=== PATIENT | female | born 1995 | race Caucasian/White ===

== ENCOUNTER 2017-04-17 06:51 | Day surgery (SDC) | payer MEDICARE ==
[2017-04-16 10:01] LABS: HEMATOCRIT 39.5 % (36.0-48.0); HEMOGLOBIN 12.4 g/dL (12-16); MCH 25.4 pg (26.0-34.0); MCHC 31.4 g/dL (31.0-37.0); MCV 80.8 fL (80.0-100.0); MEAN PLATELET VOLUME 10.8 fL (7.4-10.4); RBC 4.89 10x6/uL (4.00-5.40); RDW 13.6 % (11.5-14.5); WBC 11.6 10x3/uL (4.8-10.8)
[2017-04-17 06:46] LABS: HCG URINE NEGATIVE (NEGATIVE)
[~2017-04-17 06:51] MED LIST: ATIVAN1 MG PO; BENZTROPINE MESY2 MG PO; BIRTH CONTROL TAB PO; EFFEXOR75 MG PO; FLOVENT HFA 11012 GM INH; HYDROCODONE-APA1 TAB PO; HYDROXYZINE HCL50 MG PO; INVEGA6 MG/BLIST PO; KLONOPIN1 MG PO; LITHOBID 300 M300 MG PO; NIZORAL 2 % CRE15 GM TOPICAL; OMEPRAZOLE40 MG PO; PREDNISONE20 MG PO; REXULTI1 MG PO; SYNTHROID75 MCG PO; TOFRANIL50 MG PO; TOPAMAX100 MG PO; TRAZODONE HCL150 MG PO; VENTOLIN HFA18 GM INH; ZANTAC150 MG PO
[2017-04-17 06:53] VITALS: BP 172/99; BMI 62.8
[2017-04-17] MEDS ORDERED: HYDROCODONE-APA1 TAB PO (09:13)
--- NOTE | 2017-04-17 11:59 | NUR ---
1030 IV DC WITH CATHER TIP INTACT
--- NOTE | 2017-04-18 10:57 | OP ---
PATIENT NAME: BOB ANTHONY MEDICAL RECORD: [id number] :96 LOCATION:[facility] ADMISSION DATE: SURGEON: LITTLE JARRELL MD DATE OF OPERATION: 04/17/2017 PREOPERATIVE DIAGNOSIS: Medial meniscus tear of the right knee. POSTOPERATIVE DIAGNOSIS: Medial meniscus tear of the right knee. PROCEDURE: Arthroscopic partial medial meniscectomy. SURGEON: Little Jarrell MD ANESTHESIA: General. INTRAOPERATIVE COMPLICATIONS: None. PATHOLOGIC FINDINGS: A complex tear of the posterior horn of medial meniscus consistent with preoperative MRI. OPERATIVE SUMMARY IN DETAIL: After obtaining the appropriate preoperative orthopedic surgery consent as well as anesthetic consultation, evaluation, and clearance, the patient was brought to the operating room and placed on the operating table in supine position. After general laryngeal mask airway was administered, tourniquet was placed about the proximal aspect of the right lower extremity. Right lower extremity was then prepped and draped in routine sterile fashion. The leg was elevated and exsanguinated, tourniquet inflated to 350 mmHg. Routine inferolateral portal was established followed by superomedial portal and inferomedial portal. Diagnostic arthroscopy did reveal the patient had the above findings. Combination of a meniscotome as well as full radius resector were utilized to debride the meniscus back to stable meniscal elements. Having completed this, the knee was insufflated with 30 cc of 0.25% Marcaine with epinephrine and 40 mg of Depo-Medrol. Arthroscopy portals were closed in routine fashion using 4-0 Prolene. Sterile dressings were applied. The patient was awakened, taken to recovery room in stable condition. All final needle and sponge counts were correct. TRANSINT:[id number] Voice Confirmation ID: [id number] DOCUMENT ID: [id number] LITTLE JARRELL MD at 1057 CC: [id number] DICTATION DATE: 04/17/17 0915 RESIDENT CARE SUPERVISOR: 04/17/17 1146 [facility] 04/17/[address] [id number]
== END 2017-04-17 11:00 | disposition home or self-care (01) ==
LOC: D.OPS 06:51 → D.PAN 07:30 → D.OPS 08:15 → D.PAN 08:15 → D.OPS 08:40 → D.PAN 08:40 → D.OPS 11:00
PROVIDERS: Anesthesiology; Orthopaedic Surgery
DX: S83.241A Other tear of medial meniscus, current injury, right knee, initial encounter (principal); F17.200 Nicotine dependence, unspecified, uncomplicated; K21.9 Gastro-esophageal reflux disease without esophagitis; E03.9 Hypothyroidism, unspecified; J45.909 Unspecified asthma, uncomplicated; Z01.812 Encounter for preprocedural laboratory examination

== ENCOUNTER → 2018-12-15 10:32 | Outpatient (CLI) | payer MEDICARE | END | disposition home or self-care (01) | LOC: D.MRI 10:32 | PROVIDERS: ATTEND Orthopaedic Surgery | DX: S83.271A Complex tear of lateral meniscus, current injury, right knee, initial encounter (principal) ==

== ENCOUNTER 2019-01-28 06:12 | Day surgery (SDC) | payer MEDICARE ==
[2019-01-26 09:24] LABS: HEMATOCRIT 39.1 % (36.0-48.0); MCH 26.1 pg (26.0-34.0); MCHC 33.2 g/dL (31.0-37.0); MCV 78.5 fL (80.0-100.0); MEAN PLATELET VOLUME 11.2 fL (7.4-10.4); RBC 4.98 10x6/uL (4.00-5.40); RDW 14.8 % (11.5-14.5); WBC 8.1 10x3/uL (4.8-10.8)
[~2019-01-28] VITALS: Ht 170.2 cm; Wt 145.5 kg
[~2019-01-28 06:12] MED LIST changes: +FLOMAX0.4 MG PO
[2019-01-28 06:43] VITALS: BP 159/86; Ht 170.2 cm; Wt 145.5 kg
[2019-01-28] MEDS ORDERED: ZOLOFT100 MG PO (06:59)
[2019-01-28] MEDS ORDERED: BENZTROPINE MESY1 MG PO (07:00)
[2019-01-28 07:09] LABS: HCG URINE NEGATIVE (NEGATIVE)
[2019-01-28] MEDS ORDERED: HYDROCODON-ACE1 EA10 PO (09:16)
--- NOTE | 2019-01-28 10:52 | NUR ---
1030 IV REMOVED WITH CATHALON INTACT. UP AT BEDSIDE TO DRESS TO GET READY TO GO HOME.
--- NOTE | 2019-01-28 10:52 | NUR ---
1045 ALL DC INSTRUCTIONS GIVEN. VOICES UNDERSTANDING. ALL DC CRITERIA MET. TAKEN OUT VIA W/C AND ASSISTED TO CAR WITH FAMILY. ADVISED TO CALL OR COME BACK IF ANY PROBLEMS.
--- NOTE | 2019-01-28 12:35 | OP ---
PATIENT NAME: BOB ANTHONY MEDICAL RECORD: [id number] :96 LOCATION:[facility] ADMISSION DATE: SURGEON: LITTLE JARRELL MD DATE OF OPERATION: 01/28/2019 PREOPERATIVE DIAGNOSIS: Lateral meniscus tear of the right knee. POSTOPERATIVE DIAGNOSIS: Lateral meniscus tear of the right knee. PROCEDURE: Arthroscopic partial lateral meniscectomy. SURGEON: Little Jarrell MD ANESTHESIA: General. INTRAOPERATIVE COMPLICATIONS: None. SUMMARY OF PATHOLOGIC FINDINGS: The patient had clear evidence of a prior partial medial meniscectomy without further tearing. There was no evidence of chondromalacia. The lateral meniscus had a tear at approximately the 9 o'clock position. Upon debriding it, intrameniscal degeneration was seen along with the tearing. This was debrided back to stable meniscal elements. OPERATIVE SUMMARY IN DETAIL: After obtaining the appropriate preoperative orthopedic surgery consent as well as anesthetic consultation, evaluation and clearance, the patient was brought to the operating room and placed on the operating table in supine position. After adequate general laryngeal mask airway was administered, tourniquet was placed on the proximal aspect of the right lower extremity. Right lower extremity was then prepped and draped in routine sterile fashion. At this point, a preoperative timeout was done using the appropriate patient identifiers agreed upon by all in the OR suite. The leg was elevated and exsanguinated, tourniquet was inflated to 350 mmHg. Routine inferolateral portal was established followed by superomedial portal and inferomedial portal. Diagnostic arthroscopy revealed the patient to have the findings as noted above. Combination of arthroscopic meniscotome as well as an arthroscopic resector were utilized to debride the meniscus back to stable meniscal elements. Having completed this, the knee was insufflated with 30 cc of 0.25% Marcaine with epinephrine and 40 mg of Depo-Medrol. Arthroscopy portals were closed in routine interrupted fashion using 4-0 Prolene. Sterile dressings were applied. The patient was awakened, taken to the recovery room in stable condition. All final needle and sponge counts were correct. TRANSINT:[id number] Voice Confirmation ID: [id number] DOCUMENT ID: [id number] LITTLE JARRELL MD at 1235 CC: [id number] DICTATION DATE: 01/28/19 1055 MUSIC EDUCATION DIRECTOR: 01/28/19 1125 [facility] [address] [place] [id number]
== END 2019-01-28 10:45 | disposition home or self-care (01) ==
LOC: D.OPS 06:12 → D.PAN 10:15 → D.OPS 10:45
PROVIDERS: Anesthesiology; ATTEND Orthopaedic Surgery
DX: S83.281A Other tear of lateral meniscus, current injury, right knee, initial encounter (principal); Z01.812 Encounter for preprocedural laboratory examination

== ENCOUNTER 2019-07-08 17:11 | Emergency (ER) | payer MEDICARE ==
[~2019-07-08] VITALS: Ht 170.2 cm; Wt 131.8 kg
[~2019-07-08 17:11] MED LIST changes: +BENZTROPINE MESY1 MG PO; +HYDROCODON-ACE1 EA10 PO; +ZOLOFT100 MG PO
[2019-07-08 17:15] VITALS: Ht 170.2 cm; Wt 131.8 kg
[2019-07-08] MEDS ORDERED: KLONOPIN1 MG PO (17:16)
[2019-07-08] MEDS ORDERED: SYMBICORT 16010.2 GM INH (17:17)
[2019-07-08 17:37] LABS: BASOPHILS 0.1 % (0-2); EOSINOPHILS 2.1 % (0-7); HEMATOCRIT 37.8 % (36.0-48.0); HEMOGLOBIN 12.4 g/dL (12-16); IMMATURE GRANULOCYTES 0.1 % (0-5); LYMPHOCYTES 34.9 % (15-50); MCH 26.6 pg (26.0-34.0); MCHC 32.8 g/dL (31.0-37.0); MCV 80.9 fL (80.0-100.0); MEAN PLATELET VOLUME 10.3 fL (7.4-10.4); MONOCYTES 6.2 % (2-11); NEUTROPHILS 56.6 % (40-80); RBC 4.67 10x6/uL (4.00-5.40); RDW 14.5 % (11.5-14.5); WBC 8.1 10x3/uL (4.8-10.8)
[2019-07-08 17:44] LABS: PLATELET COUNT 267 10x3/uL (130-400)
[2019-07-08 17:46] LABS: CALC OSMOLALITY 284 mosm/kg (275-300); CALCIUM 8.6 mg/dL (8.5-10.1); CARBON DIOXIDE 25.2 mmol/L (21.0-32.0); CHLORIDE - SERUM 107 mmol/L (98-107); CREATININE - SERUM 0.9 mg/dL (0.6-1.3); GLUCOSE 94 mg/dL (74-106); POTASSIUM - SERUM 3.8 mmol/L (3.5-5.1); SODIUM 144 mmol/L (136-145); UREA NITROGEN 8 mg/dL (7-18); eGFR NON AFRICAN AMERICAN 82 mL/min (90-120)
[2019-07-08 17:55] LABS: ALBUMIN 3.7 g/dL (3.4-5.0); ALKALINE PHOSPHATASE 68 U/L (46-116); ALT (SGPT) 16 U/L (10-68); AMYLASE - SERUM 36 U/L (25-115); BILIRUBIN - TOTAL 0.18 mg/dL (0.2-1.3); LIPASE 133 U/L (73-393); PROTEIN - SERUM 7.1 g/dL (6.4-8.2); TROPONIN-I < 0.017 ng/mL (0.000-0.060)
[2019-07-08 18:32] LABS: APPEARANCE CLEAR (CLEAR); COLOR YELLOW (YELLOW)
[2019-07-08 18:33] LABS: BILIRUBIN NEGATIVE (NEGATIVE); GLUCOSE NEGATIVE (NEGATIVE); KETONE NEGATIVE (NEGATIVE); NITRITE NEGATIVE (NEGATIVE); PROTEIN NEGATIVE (NEGATIVE); UROBILINOGEN NORMAL (NORMAL)
[2019-07-08 18:34] LABS: HCG URINE NEGATIVE (NEGATIVE)
[2019-07-08] MEDS ORDERED: DIFLUCAN150 MG PO (21:59)
[2019-07-08 22:05] VITALS: BP 118/64
== END 2019-07-08 22:06 | disposition home or self-care (01) ==
LOC: D.ER 17:11
PROVIDERS: Emergency Medicine
DX: N83.201 Unspecified ovarian cyst, right side (principal); B37.3 Candidiasis of vulva and vagina; R10.9 Unspecified abdominal pain; K21.9 Gastro-esophageal reflux disease without esophagitis; F32.9 Major depressive disorder, single episode, unspecified; Z72.0 Tobacco use

== ENCOUNTER → 2019-11-25 10:34 | Outpatient (CLI) | payer MEDICARE ==
[2019-07-08 17:15] VITALS: BMI 45.5
[~2019-11-25 10:34] MED LIST changes: +DIFLUCAN150 MG PO; +SYMBICORT 16010.2 GM INH
== END | disposition home or self-care (01) ==
LOC: D.MRI 11-22 13:30
PROVIDERS: ATTEND Orthopaedic Surgery
DX: M75.41 Impingement syndrome of right shoulder (principal)

== ENCOUNTER → 2019-12-27 14:19 | Outpatient (CLI) | payer MEDICARE ==
[2019-07-08 17:15] VITALS: BMI 45.5
== END | disposition home or self-care (01) ==
LOC: D.MRI 14:19
PROVIDERS: ATTEND Orthopaedic Surgery
DX: M54.12 Radiculopathy, cervical region (principal)

== ENCOUNTER 2020-01-24 05:24 | Day surgery (SDC) | payer MEDICARE ==
[2020-01-21 09:30] LABS: HEMATOCRIT 40.8 % (36.0-48.0); MCH 25.2 pg (26.0-34.0); MCHC 31.9 g/dL (31.0-37.0); MCV 79.2 fL (80.0-100.0); MEAN PLATELET VOLUME 11.2 fL (7.4-10.4); RBC 5.15 10x6/uL (4.00-5.40); RDW 14.6 % (11.5-14.5); WBC 9.2 10x3/uL (4.8-10.8)
[~2020-01-24] VITALS: Ht 170.2 cm; Wt 127.0 kg
--- NOTE | ~2020-01-24 | OP ---
PATIENT NAME: BOB ANTHONY MEDICAL RECORD: [id number] :96 LOCATION:[facility] ADMISSION DATE: SURGEON: LITTLE JARRELL MD DATE OF OPERATION: 01/24/2020 PREOPERATIVE DIAGNOSIS: Impingement syndrome of the right shoulder. POSTOPERATIVE DIAGNOSIS: Impingement syndrome of the right shoulder. PROCEDURES: 1. Right shoulder arthroscopy with distal clavicle excision done through separate incision - 1 cm. 2. Arthroscopic subacromial decompression with acromioplasty and bursectomy. SURGEON: Little Jarrell MD ANESTHESIA: General. INTRAOPERATIVE COMPLICATIONS: None. SUMMARY OF PATHOLOGIC FINDINGS: The patient was thought to have a potential SLAP lesion with biceps tendinitis. There was a very minimal amount of biceps tendinitis and rather than doing a tenodesis I decided a decompression would likely resolve the symptoms. OPERATIVE SUMMARY IN DETAIL: After obtaining the appropriate preoperative orthopedic surgery consent as well as anesthetic consultation, evaluation and clearance, the patient was brought to the operating room and placed on the operating table in supine position. After adequate general laryngeal mask was administered, the patient was placed in a left lateral decubitus position. All pressure points were well padded to include down leg peroneal pad as well as axillary roll. The patient was held firmly to the operating table using the vacuum pack suction system. The patient's right upper extremity and shoulder were then prepped and draped in routine sterile fashion. The arm was held in the Arthrex traction boom at 30 degrees of forward flexion, 30 degrees of abduction, 10 pounds of traction laterally. Arthroscopy was established in the glenohumeral joint from posterior portal. Anterior portal was established in the anterior safe interval. Diagnostic arthroscopy showed the patient to have the above-mentioned findings. Attention was then turned to the subacromial space. While in the subacromial space, accessory lateral portal was created through which the [place] tissue ablation system from Arthrex was used to denude the undersurface of the acromion of all soft tissue elements and release the coracoacromial ligament. A 5-0 barrel bur was then used to perform acromioplasty at the level of acromioclavicular joint. Through a separate arthroscopic portal anteriorly under direct arthroscopic visualization, distal clavicle was excised for 1 cm. Having completed this, the residual of the patient's subacromial bursa was removed anteriorly, laterally, posteriorly as well as superficially. At this point, the patient's arthroscopic portals were closed in routine interrupted fashion using 4-0 Prolene. Sterile dressings were applied. The patient was awakened, taken to the recovery room in stable condition. All final needle and sponge counts were correct. TRANSINT:[id number] Voice Confirmation ID: [id number] DOCUMENT ID: [id number] OPERATIVE REPORT [id number] BOB ANTHONY MD, LITTLE WILDER CC: [id number] DICTATION DATE: 01/28/20 [address] [place] GRADER: 01/28/20 1235 [facility] [place] [place] 01/24/20 [place] [id number] [place] [id number]
[~2020-01-24 05:24] MED LIST changes: +PROTONIX40 MG PO; +VRAYLAR3 MG PO; +XANAX2 MG PO
[2020-01-24 05:54] LABS: HCG URINE NEGATIVE (NEGATIVE)
[2020-01-24 06:02] VITALS: BP 126/68; Ht 170.2 cm; Wt 127.0 kg
[2020-01-24] MEDS ORDERED: HYDROCODON-ACE1 EA10 PO (08:11)
== END 2020-01-24 10:00 | disposition home or self-care (01) ==
LOC: D.OPS 05:24
PROVIDERS: Anesthesiology; ATTEND Orthopaedic Surgery
DX: M75.22 Bicipital tendinitis, left shoulder (principal); M75.42 Impingement syndrome of left shoulder; K21.9 Gastro-esophageal reflux disease without esophagitis; F17.200 Nicotine dependence, unspecified, uncomplicated

== ENCOUNTER 2020-04-13 11:37 | Emergency (ER) | payer MEDICARE ==
[~2020-04-13] VITALS: Ht 170.2 cm; Wt 136.4 kg
[~2020-04-13 11:37] MED LIST changes: +TRAZODONE HCL100 MG PO
[2020-04-13 12:37] LABS: BASOPHILS 0.1 % (0-2); EOSINOPHILS 0.4 % (0-7); HEMATOCRIT 38.2 % (36.0-48.0); HEMOGLOBIN 12.3 g/dL (12-16); IMMATURE GRANULOCYTES 0.4 % (0-5); LYMPHOCYTES 11.6 % (15-50); MCH 24.6 pg (26.0-34.0); MCHC 32.2 g/dL (31.0-37.0); MCV 76.2 fL (80.0-100.0); MEAN PLATELET VOLUME 9.9 fL (7.4-10.4); MONOCYTES 5.5 % (2-11); RBC 5.01 10x6/uL (4.00-5.40); RDW 15.2 % (11.5-14.5); WBC 18.7 10x3/uL (4.8-10.8)
[2020-04-13 12:38] LABS: PLATELET COUNT 352 10x3/uL (130-400)
[2020-04-13 12:44] LABS: BILIRUBIN NEGATIVE (NEGATIVE); KETONE NEGATIVE (NEGATIVE); NITRITE NEGATIVE (NEGATIVE); UROBILINOGEN NORMAL mg/dL (< 2)
[2020-04-13 12:49] LABS: CALC OSMOLALITY 271 mosm/kg (275-300); CALCIUM 9.1 mg/dL (8.5-10.1); CARBON DIOXIDE 25.4 mmol/L (21.0-32.0); CHLORIDE - SERUM 100 mmol/L (98-107); CREATININE - SERUM 0.9 mg/dL (0.6-1.3); EPITHELIAL CELLS 0-5 /hpf (0-5); GLUCOSE 118 mg/dL (74-106); POTASSIUM - SERUM 3.6 mmol/L (3.5-5.1); SODIUM 137 mmol/L (136-145); UREA NITROGEN 5 mg/dL (7-18); eGFR NON AFRICAN AMERICAN 81 mL/min (90-120)
[2020-04-13 12:50] LABS: BACTERIA MODERATE HPF (NONE SEEN)
[2020-04-13 12:53] VITALS: Ht 170.2 cm; Wt 136.4 kg
[2020-04-13 12:54] LABS: UDS - AMPHET POSITIVE QUAL (NEGATIVE); UDS - BARB NEGATIVE QUAL (NEGATIVE); UDS - BENZO POSITIVE QUAL (NEGATIVE); UDS - COCAINE NEGATIVE QUAL (NEGATIVE); UDS - OPIATE NEGATIVE QUAL (NEGATIVE); UDS - PCP NEGATIVE QUAL (NEGATIVE); UDS - THC POSITIVE QUAL (NEGATIVE)
[2020-04-13 12:57] LABS: ALBUMIN 3.2 g/dL (3.4-5.0); ALKALINE PHOSPHATASE 89 U/L (30-120); ALT (SGPT) 11 U/L (10-68); BILIRUBIN - TOTAL 0.38 mg/dL (0.2-1.3); LIPASE 50 U/L (73-393); PROTEIN - SERUM 8.2 g/dL (6.4-8.2)
[2020-04-13 12:59] LABS: HCG SERUM NEGATIVE (NEGATIVE)
== END 2020-04-13 18:07 | disposition left against medical advice (07) ==
LOC: D.ER 11:37
PROVIDERS: Family Medicine
DX: N83.209 Unspecified ovarian cyst, unspecified side (principal); R10.9 Unspecified abdominal pain; N73.9 Female pelvic inflammatory disease, unspecified; J45.909 Unspecified asthma, uncomplicated; E03.9 Hypothyroidism, unspecified; K21.9 Gastro-esophageal reflux disease without esophagitis; Z72.0 Tobacco use

== ENCOUNTER 2020-04-13 18:19 | Inpatient (IN) | payer MEDICARE ==
[~2020-04-13] VITALS: Ht 170.2 cm; Wt 136.4 kg
--- NOTE | 2020-04-13 18:33 | NUR ---
PATIENT IN ED EARLIER AND WAS AN LWOT, WILL USE LAB AND RADIOLOGY FROM FIRST VISIT PER DR PASTOR,
--- NOTE | 2020-04-13 21:56 | NUR ---
DC'D IV IN BOTH R WRIST AND L AC D/T BURNING AT SITE. PT INSISTED THEY BE DC'D
[2020-04-13 22:00] VITALS: BP 105/53
--- NOTE | 2020-04-13 22:17 | NUR ---
REPORT GIVEN TO JACKIE Sorensen RN
--- NOTE | 2020-04-13 22:18 | NUR ---
MEFOXIN 2 GM/30 MIN IS INFUSING WITH 2 GM REMAINING AT SHIFT CHANGE.
--- NOTE | 2020-04-13 22:50 | NUR ---
RECEIVED PT FROM ED VIA WC TO ROOM 1222, PT TRANSFERS SELF TO BED WITH NO DIFFICULTY, IV IN RIGHT AC INTACT WITH NO REDNESS OR EDEMA INFUSING NS TO PUMP AT 125 ML, ADMISSION ASSESSMENT, HISTORY, AND MED REC STARTED
[2020-04-13 22:56] VITALS: BP 127/70; Ht 170.2 cm; Wt 136.4 kg
--- NOTE | 2020-04-13 23:26 | NUR ---
MEFOXIN WAS FINISHED INFUSING WHEN PT ARRIVED, FLAGYL STARTED IVPB PER MD ORDERS, SEE EMAR, PT CHANGED INTO GOWN, PT INFORMED OF DIET ORDERS FROM CLEARS TO NOW A REGULAR, ADMISSION HISTORY, ASSESSMENT, MED REC COMPLETED, PT DENIES NAUSEA, REQUESTED AND SERVED SANDWICH TRAY AND LEMON OMAHA SODA, PT DENIES NEED FOR PAIN MED, PT ORIENTED TO ROOM, BED IN LOW POSITION, SIDE RAILS X 2, CALL LIGHT IN REACH
--- NOTE | 2020-04-14 02:38 | NUR ---
PT RESTING WITH EYES CLOSED, AROUSES, DENIES FURTHER NEEDS OR PAIN AT THIS TIME
[2020-04-14 04:12] VITALS: BP 100/59
--- NOTE | 2020-04-14 04:12 | NUR ---
PT RESTING WITH EYES CLOSED, AROUSES TO SOFT VERBAL STIMULATION, VS OBTAINED, MEFOXIN HUNG IVPB PER MD ORDERS, SEE EMAR, PT UP TO BR, GAIT STEADY, VOIDED 200 MLS OF LIGHTLY BLOOD TINGED URINE BY SELF WITH NO DIFFICULTY, PT DENIES BEING ON PERIOD, STATES "I STARTED BLEEDING A LITTLE AFTER THE DID THAT TRANSVAGNAL EXAM", ZHEN PADS PROVIDED, PT REQUESTED AND SERVED LEMON BIG LAGOON AND OJ, DENIES FURTHER NEEDS OR PAIN
--- NOTE | 2020-04-14 04:28 | NUR ---
LAB TO ROOM FOR AM BLOOD DRAW
--- NOTE | 2020-04-14 05:42 | NUR ---
PT RESTING WITH EYES CLOSED, RESP QUIET, NO DISTRESS NOTED, LEFT UNDISTURBED AT THIS TIME
[2020-04-14 07:51] VITALS: BP 122/67
--- NOTE | 2020-04-14 07:51 | NUR ---
THIS RN TO ROOM FOR SHIFT ASSESSMENT. PT SITTING UP IN BED, EATING BREASKFAST. PT REPORTS PAIN LEVEL OF 3/10, DENIES NEED FOR INTERVENTION. REPORTS PAIN IS STILL IN LOWER RIGHT ABD BUT MILD. PT DENIES HEAVY BLEEDING, STATES STILL JUST MILD/SPOTTING FOLLOWING TRANSVAGINAL U/S. PT STATES SHOULDN'T BE HER PERIOD BC LMP WAS 03/26-04/03. POC DISCUSSED WITH PT, UNDERSTANDING VERBALIZED. VSS, SHIFT ASSESSMENT COMPLETE, SEE FLOWSHEET FOR DOC. MILD EXPIRATORY WHEEZES NOTED TO RIGHT LUNG LOBES, PT REPORTS HX OF ASTHMA AND SMOKING. PT INSTRUCTED ON COUGHING AND DEEP BREATHING, UNDERSTANDING VERBALIZED. PT QUESTIONS ON RESUMING HOME MED. WILL NOTIFY DR SEVERINO. PT DENIES NEEDS AT THIS TIME. SRUx2, CL IN REACH.
--- NOTE | 2020-04-14 08:24 | NUR ---
DR SEVERINO TO PT ROOM FOR ROUNDING. DISCUSSING POC WITH PT AND RESUMING HOME MEDS. REPORT GIVEN ON PT WHEEZE ON EXPIRATION ON RIGHT LUNG LOBES. STATES MAY ORDER INHALER FOR PT IF NEEDED.
--- NOTE | 2020-04-14 08:26 | NUR ---
DR SEVERINO INFORMED PT QUESTIONING ABOUT RESUMING HOME MEDS, STATES WILL PLAN TO RESUME HOME MEDS WHEN REVIEWING MED REC.
--- NOTE | 2020-04-14 09:28 | NUR ---
THIS RN TO ROOM FOR PT CHECK, PT LYING IN BED ON LEFT SIDE. PT ALERTS THIS RN ENTERS ROOM, DENIES NEEDS. IV INFUSING ORDERED, WILL SET UP NEXT DOSE IV ABX WHEN DOXYCYCLINE FINISHED. SRUx2, CL IN REACH.
--- NOTE | 2020-04-14 09:55 | NUR ---
THIS RN TO ROOM TO HANG NEXT DUE ABX. FLAGYL STILL NOT AVAILABLE ON UNIT, WILL NOTIFY PHARMACY. MEFOXIN HUNG ORDERED, SEE EMAR FOR DOC. PT RESTING ON LEFT SIDE, RESP EVEN AND UNLABORED. LEFT UNDISTURBED FOR REST. SRUx2, CL IN REACH.
--- NOTE | 2020-04-14 10:35 | NUR ---
URIEL PROVIDED FROM PHARMACY, THIS RN TO ROOM FOR WELDER/INSTALLER. FLAGYL HUNG ORDERED, FLORAJEN CAPSULE ADMIN ORDERED, NEW BAG NS HUNG ORDERED, SEE EMAR FOR DOC. PT DENIES PAIN. SPRITE PROVIDED PER REQUEST. PT DENIES FURTHER NEEDS. SRTila2, CL IN REACH. WILL CONT TO MONITOR.
[2020-04-14 12:18] VITALS: BP 125/68
--- NOTE | 2020-04-14 12:20 | NUR ---
PT TRANSFERRED TO ROOM 1273, AMBULATORY, REPORTS MINIMAL PAIN RATED 3/10. PT ORIENTED TO NEW ROOM AND CALL LIGHT. SPRITE PROVIDED. PT DENIES NEEDS. REPORT TO CHRIS AGUILAR.
--- NOTE | 2020-04-14 12:40 | NUR ---
DR SEVERINO PHONED AND MED REC REVIEWED. ORDER RECEIVED TO RESUME ALL HOME MEDS AND SYMBICORT INHALER PRN WELL.
--- NOTE | 2020-04-14 13:00 | NUR ---
IV SALINE LOCKED, PT TOLERATING PO FLUIDS AND DENIES NAUSEA. RATES PAIN AT 0/10 AT THIS TIME.
--- NOTE | 2020-04-14 15:45 | NUR ---
CONTINUE TO DENY PAIN OR DISCOMFORT. TEXTING ON HER CELL PHONE, LARGE CUP OF ICE WITH DR LE PROVIDED REQUESTED, NO OTHER NEEDS AT THIS TIME. CALL LIGHT IN REACH.
--- NOTE | 2020-04-14 17:04 | NUR ---
MEFOXIN COMPLETED. IV FLUSHED WITH 50ML THEN SALINE LOCKED, PT SITTING UP TO EAT DINER, DENIES PAIN AND HAS NO NEEDS AT THIS TIME.
--- NOTE | 2020-04-14 18:27 | NUR ---
PT AMB IN HALLS TO ICE MACHINE, SHE DOES ASK FOR PAIN MED DO TO PAIN/BURNING WHEN SHE VOIDS. NO OTHER NEEDS AT THIS TIME.
--- NOTE | 2020-04-14 18:40 | NUR ---
MORPHINE 4MG DILUTED IN 5ML NS GIVEN OVER 3 MINUTES. PT STATES THAT SHE FEELS A "DISCOMFORT" ALL THE TIME BUT HAS GOTTEN WORSE WHEN SHE GETS UP TO VOID OR TRY TO VOID. LARGE ICE WATER PROVIDED AT THIS TIME ALSO.
[2020-04-14 19:22] VITALS: BP 116/69
--- NOTE | 2020-04-14 19:28 | NUR ---
PM ASSESSMENT COMPLETED. PT ALERT, ORIENTED X4, VSS. AFEBRILE. RESPONSIVE, APPROPRIATELY CONVERSANT, COLOR WNL, RESP EVEN AND UNLABORED, HEART RRR, ABD SOFT, RLQ TENDERNESS NOTED TO AUSCULATATION OF RLQ, ACTIVE BOWEL SOUNDS PRESENT X4, VOIDING WITH SOME INTERMITTENT LIGHT VAGINAL BLEEDING NOTED ON 1/3 OF PERIPAD. PT REPORTS CHANGING PERIPADS X 3 TODAY WITH SIMILAR BLEEDING NOTED ON PERIPAD. DENIES PASSING CLOTS. +FLATUS, TOLERATING PO DIET WELL-CURRENTLY EATING FAST FOOD BROUGHT BY FRIEND. NEGATIVE ALBIN'S SIGN B LE, +2/=/PEDAL AND POPLITEAL PULSES B. BYRNES FREELY, AMBULATORY IN ROOM TO BR. REVIEWED PLAN OF CARE TONIGHT TO INCLUDE PAIN MANAGEMENT, IV ANTIBIOTICS, ENCOURAGING REPORT OF CHANGE IN CONDITION OR NEEDS/CONVERNS PRN, MONITORING VS. PT VOICES UNDERSTANDING AND REPORTS NO NEEDS/CONCERNS AT THIS TIME. WILL CONTINUE TO MONITOR.
--- NOTE | 2020-04-14 20:10 | NUR ---
P DENIES NEEDS/CONCERNS, IV ANTIBIOTICS HUNG PER MD ORDER, INFUSING WITHOUT DIFFICULTY TO R AC, SITE BENIGN TO INSPECTION. PT TALKING ON PHONE, SMILING. WILL MONITOR.
--- NOTE | 2020-04-14 21:06 | NUR ---
PT AMBULATORY IN ROOM, SCHEDULED PM MEDS ADMINISTERED PER MD ORDERS. DENIES NEEDS/CONCERNS, RESP EVEN AND UNLABORED, REPORTS PAIN REMAINS 4 OUT OF 10 ON NUMERIC PAIN SCALE AND INQUIRING WHEN NEXT DOSE OF MORPHINE AVAILABLE, REVIEWED MD ORDERS WITH PT, PT STATES WILL WAIT UNTIL NEXT DOSE AVAILABLE OR "I MIGHT BE SLEEPING ANYWAY SINCE I'M TAKING THESE XANAX NOW." WILL MONITOR CHANGE IN CONDITION. CALL LIGHT IN EASY REACH, BED IN LOW POSITION, BED BRAKES LOCKED, SIDE RAILS UP X2.
--- NOTE | 2020-04-14 22:15 | NUR ---
ROUNDS COMPLETED. NO NAD NOTED. CONTINUE TO MONITOR.
--- NOTE | 2020-04-14 23:51 | NUR ---
ROUNDS COMPLETED, PT RESTING WITH EYES CLOSED, RESP EVEN AND UNLABORED, NAD NOTED. WILL CONTINUE TO MONITOR.
--- NOTE | 2020-04-15 01:10 | NUR ---
ROUNDS COMPLETED, PT RESTING WITH EYES CLOSED, RESP EVEN AND UNLABORED, NAD NOTED. CONTINUE TO MONITOR.
--- NOTE | 2020-04-15 02:00 | NUR ---
ROUNDS COMPLETED, SCHEDULED IV MEDS ADMINISTERED PER MD ORDERS, PT DENIES NEEDS/CONCERNS, BED IN LOW POSITION, BED BRAKES LOCKED, SIDE RAILS UP X2, CONTINUE TO MONITOR.
--- NOTE | 2020-04-15 04:30 | NUR ---
ROUNDS COMPLETED, MEDS ADMINISTERED ORDERED. PT RELAYS C/O ACHING PAIN TO RLQ AND REQUESTS PAIN MED-WILL PROVIDE ORDERED. PT RELAYS NO FURTHER VAGINAL BLEEDING, RESP EVEN AND UNLABORED, VSS, AFEBRILE, O2 SAT 100% ON RA. DENIES N/V/D. VOIDING WITHOUT DIFFICULTY. CONTINUE TO MONITOR FOR CHANGE IN STATUS.
[2020-04-15 04:42] VITALS: BP 108/59
--- NOTE | 2020-04-15 06:11 | NUR ---
ROUNDS COMPLETED, AM MED GIVEN WITH SIPS WATER. IVF INFUSING PER MD ORDER, SITE TO R A/C BENIGN TO INSPECTION. PT DENIES NEEDS/CONCERNS. CALL LIGHT IN EASY REACH, WILL CONTINUE TO MONITOR.
--- NOTE | 2020-04-15 07:56 | NUR ---
DOXYCYCLINE IVPB ADM, SEE EMAR. PT HAS EATEN REGULAR BREAKFAST, DENIES NAUSEA, VOMITING, SOB/DIFFICULTY BREATHING. PT REPORTS SHE HAS HAD SOME BRIGHT RED/PINK VAGINAL BLEEDING TODAY, STATES "IT IS NOT BAD YESTERDAY". PERIPADS NOTED IN BIOHAZARD TRASH CAN IN BATHROOM TO HAVE SMALL AMOUNT OF BRIGHT RED/PINKISH DISCHARGE IN MIDDLE OF PAD ONLY, NOTED PAD ON TOP IN TRASH, PT STATES THIS IS THE MOST RECENT ONE. SRUP X2, CALL LIGHT AND PHONE WITHIN REACH. LIGHTS OUT WITH DIMMERS ON THIS RN EXITS ROOM. PT APPRECIATIVE, AND SAYS THANK YOU.
[2020-04-15 08:00] VITALS: BP 122/88
--- NOTE | 2020-04-15 08:00 | NUR ---
AM ASSESSMENT COMPLETED, SEE FLOWSHEET. PT DENIES N/V, DIZZINESS, OR SHORTNESS OF BREATH. PT STATES SHE IS PASSING GAS, ABDOMEN PALPATES SOFT, WITH TENDERNESS NOTED TO RIGHT SIDE OF LOWER ABDOMEN WITH PALPATION, PT REPORTS SHE IS ABLE TO HAVE SMALL BOWEL MOVEMENTS, STATES LAST ONE WAS YESTERDAY AFTERNOON. PT HAS REGULAR BREAKFAST TRAY ON BEDSIDE TABLE, REQUESTS SPRITE TO DRINK, SERVED. PT DENIES ALL OTHER NEEDS AT THIS TIME. SEE EMAR FOR MED ADM. SRUP X2, CALL LIGHT AND PHONE WITHIN REACH.
--- NOTE | 2020-04-15 09:23 | NUR ---
MEFOXIN IVPB ADM, SEE EMAR. PT DENIES ALL NEEDS AT THIS TIME. ASKED PT IS SHE WOULD LIKE THE LIGHTS TURNDED OFF IN HER ROOM, PT STATES SHE WOULD, AND SO LIGHTS OFF, WITH DIMMERS REMAINING ON FOR PT SAFETY. SR UP X 2, CALL LIGHT AND PHONE WITHIN REACH.
[2020-04-15 12:55] VITALS: BP 122/84
--- NOTE | 2020-04-15 12:55 | NUR ---
TO ROOM, PT IS SITTING UP IN THE BED, WITH PT'S MOTHER AT HER BEDSIDE. PT'S MOTHER VOICES CONCERNS ABOUT NO ONE BEING UP HERE WITH THE PT, DUE TO COVID, AND STATES "WHEN I LEAVE, HER DAD WILL BE COMING IN TO VISIT HER, AND THEN HER OTHER MOTHER WILL BE UP HERE TO VISIT HER WHEN HER DAD LEAVES". VISITOR RECOMMENDATION EXPLAINED TO PT AND PT'S MOTHER 1 PER STAY, THIS UPSET PT'S MOTHER AND PT PT'S MOTHER STATES "THAT'S NOT WHAT WE WERE TOLD YESTERDAY, WE WERE TOLD LONG THERE WAS ONLY ONE HERE AT A TIME, WE COULD TAKE TURNS". PT DROPS HER HEAD AND STARTS SOBBING, STATING "IF THEY DON'T LET MY FUCKING OTHER MOM COME IN, I WILL RIP EVERYTHING OUT AND FUCKING LEAVE". PT'S MOTHER STATES "WE DON'T KNOW WHAT IS GOING ON BECAUSE WE ALWAYS HAVE SOMEONE TAKE HER TO HER DOCTOR'S APPOINTMENTS AND THERE IS ALWAYS SOMEONE WITH HER". PT STATES SHE DOES NOT REMEMBER DR. SEVERINO COMING IN HER ROOM TO SEE HER TODAY WHEN ASKED IF SHE REMEMBERS THE DOCTOR COMING IN. PT'S MOTHER STATES "THIS IS HOW SHE GETS, SHE IS VERY FORGETFUL". OFFERED TO CALL DR. Root AND TRANSFER MD TO ROOM PHONE, PT AND PT'S MOTHER AGREES. THIS RN TO LD DESK TO CALL . UP X2, CALL LIGHT AND PHONE WITHIN REACH.
--- NOTE | 2020-04-15 12:58 | NUR ---
URIEL IVPB ADM, SEE EMAR. ALL MEDICATIONS ON EMAR EXPLAINED TO PT AND PT'S MOTHER, PT AND HER DENY ALL QUESTIONS AT THIS TIME. PT DID NOT EAT REGULAR LUNCH TRAY SERVED BY DIETARY, PT'S MOTHER HAS BROUGHT HER TACO ISSA AND A DRINK FROM [facility]. PT DENIES NEEDING ANYTHING ELSE TO EAT/DRINK. SRUP X2, CALL LIGHT AND PHONE WITHIN REACH.
--- NOTE | 2020-04-15 13:10 | NUR ---
DR. SEVERINO ON TELEPHONE, AND WITH PT'S PERMISSION IS SPEAKING TO PT'S MOTHER REGARDING PLAN OF CARE FOR PT.
--- NOTE | 2020-04-15 14:15 | NUR ---
PT'S MOTHER TO DESK, STATING "I'M JUST RELAYING THE MESSAGE, BOB HAS ASKED ME TO TO TELL YA'LL IF YOU WOULD WHEN YOU LEAVE THE ROOM TO BE SURE AND MANAGER OF TRANSPORTATION THE LIGHTS, SHE SAYS SHE IS HAVING TO GET UP OUT OF BED TO TURN THEM OFF EVERYTIME YA'LL LEAVE THE ROOM BECAUSE YOU ARE NOT TURNING THEM OFF, AND WHEN SHE CALLS OUT, SHE SAID YA'LL TOLD HER IT WOULD BE A LITTLE BIT BEFORE YALL COULD COME DOWN TO HER ROOM, THAT YALL WERE BUSY". EXPLAINED TO PT'S MOTHER PT HAS NOT CALLED OUT INJECTION MACHINE OPERATOR LIGHT ALL DAY, AND LIGHTS HAVE BEEN TURNED OFF AT PT'S REQUEST THROUGHOUT THE DAY, AND PT HAS BEEN APPRECIATIVE OF CARE AND SAYS "THANK YOU" EACH TIME RN IS LEAVING ROOM. PT'S MOTHER STATES "I'M JUST TELLING YOU WHAT SHE SAID BECAUSE I TOLD HER I WOULD". TO ROOM AT THIS TIME, PT DENIES ALL NEEDS, DENIES NEEDING PAIN MEDICATION, SRUP X2, CALL LIGHT AND PHONE WITHIN REACH. LIGHTS ARE OUT AT THIS TIME, WITH BATHROOM LIGHT ON AND DOOR JUST CRACKED FOR SAFETY LIGHT.
--- NOTE | 2020-04-15 16:20 | NUR ---
TO PT'S ROOM, IV IS BEEPING, STATES "PT SIDE OCCLUDED. UPON INSPECTION, NO REDNESS OR SWELLING OR PAIN NOTED TO IV SITE. TUBING IS NOTED TO BE KINKED UNDERNEATH THE BLANKET, TUBING UNKINKED, AND IV NOW INFUSING NS PER ORDER. PT DENIES ALL NEEDS AT THIS TIME. SR UP X2, CALL LIGHT AND PHONE WITHIN REACH. LIGHTS IN ROOM REMAIN OUT, WITH BR LIGHT ON, AND DOOR CRACKED FOR SAFETY LIGHT.
--- NOTE | 2020-04-15 17:15 | NUR ---
DIETARY SERVES REGULAR SUPPER TRAY, PT DENIES ALL OTHER NEEDS AT THIS TIME. SRUP X2, CALL LIGHT AND PHONE WITHIN REACH.
--- NOTE | 2020-04-15 17:30 | NUR ---
TO ROOM, PT IS LYING IN BED, ON HER BACK. PT REQUESTS TYLENOL FOR ABD PAIN, MEDICATION ADM DISCUSSED WITH PT, PT WILL INFORM NURSE IF TYLENOL DOESN'T WORK. SEE EMAR FOR EMAR FOR MED ADM. PT DENIES ALL OTHER NEEDS. SRUP X2, CALL LIGHT AND PHONE WITHIN REACH.
[2020-04-15 17:44] LABS: HEMATOCRIT 29.2 % (36.0-48.0); HEMOGLOBIN 9.3 g/dL (12-16); MCH 24.7 pg (26.0-34.0); MCHC 31.8 g/dL (31.0-37.0); MCV 77.5 fL (80.0-100.0); MEAN PLATELET VOLUME 9.7 fL (7.4-10.4); NEUTROPHILS 52.9 % (40-80); PLATELET COUNT 296 10x3/uL (130-400); RBC 3.77 10x6/uL (4.00-5.40); RDW 14.4 % (11.5-14.5); WBC 5.7 10x3/uL (4.8-10.8)
[2020-04-15 19:02] VITALS: BP 125/84; BP 125/94
--- NOTE | 2020-04-15 19:02 | NUR ---
PM ASSESSMENT COMPLETED; PT REQUESTING PRN PAIN MEDS; LAST DOSE TYLENOL AT 1730; WILL ADMINISTER PRN MORPHINE ORDERED; REVIEWED PAIN MANAGEMENT PLAN OF CARE, SIGNS AND SYMPTOMS TO REPORT, ACTIVITY, TCDB, IV ANTIBIOTICS. PT RELATES VAGINAL BLEEDING DECREASED FROM YESTERDAY BUT STILL PRESENT, MESH PANTIES PROVIDED, PERICARE PER PT. PT PROVIDED LEMON P[place] PO[place] SODA PER REQUEST. BED IN LOW POSITION, BED BRAKES LOCKED, SIDE RAILS UP X2, HOB ELEVATED 30 DEGREES, AND WILL CONTINUE TO MONITOR. PT VOICES UNDERSTANDING OF ALL INSTRUCTIONS THIS PM.
--- NOTE | 2020-04-15 20:55 | NUR ---
ROUNDS COMPLETED, RESP EVEN AND UNLABORED, PT TALKING ON CELLULAR PHONE, NAD NOTED. MEDS ADMINISTERED PER ORDERS. WILL CONTINUE TO MONITOR. CALL LIGHT IN EASY REACH, NO NEEDS/CONCERNS VOICED AT THIS TIME.
--- NOTE | 2020-04-15 21:32 | NUR ---
ROUNDS COMPLETED, NAD NOTED. RESP EVEN AND UNLABORED, WILL CONTINUE TO MONITOR.
--- NOTE | 2020-04-15 23:31 | NUR ---
rounds completed, pt aaox4, conversant, denies needs/concerns at present, ivf infusing per orders, nad noted. continue to monitor.
--- NOTE | 2020-04-16 01:10 | NUR ---
ROUNDS COMPLETED, PT RESTING WITH EYES CLOSED AND ROUSES ON DOOR OPENING TO ROOM, NAD NOTED, DENIES NEEDS/CONCERNS. CALL LIGHT IN EASY REACH WILL CONTINUE TO MONITOR.
--- NOTE | 2020-04-16 03:10 | NUR ---
rounds completed, resting with eyes closed, supine with hob elevated 20 degrees, side rail up x2, bed in low position, bed brakes locked, ivf infusing at 125ml/hr per orders without difficulty, iv site benign to r a/c. will monitor.
--- NOTE | 2020-04-16 05:16 | NUR ---
pt using call light to request prn pain med for c/o pain 6 out of 10 on numeric pain scale, prn acetaminophen given along with cup of lemon eek soda. no other requests at this time, call light within easy reach, will monitor.
[2020-04-16 07:30] VITALS: BP 111/63
--- NOTE | 2020-04-16 07:30 | NUR ---
AM ASSESSMENT COMPLETED, SEE FLOWSHEET. SEE EMAR FOR ALL MEDS ADM BY THIS RN. PT STATES SHE IS HAVING SOME BRIGHT RED VAGINAL BLEEDING, STATES IT IS ABOUT THE SAME YESTERDAY, PT REQUESTS MORE PADS/PANTIES WHICH WERE PROVIDED. PT STATES SHE IS STILL HURTING A LITTLE IN HER LWOER RIGHT ABDOMEN A LITTLE, BUT STATES IT IS BETTER THAN YESTERDAY. PT HAS REGULAR BREAKFAST TRAY ON BEDSIDE TABLE, DENIES ALL OTHER NEEDS AT THIS TIME. SR UP X2, CALL LIGHT AND PHONE WITHIN REACH. LIGHTS OUT, BATHROOM LIGHT REMAINS ON WITH DOOR CRACKED FOR SAFETY LIGHTING.
--- NOTE | 2020-04-16 09:15 | NUR ---
PT UP TO BR, VOIDS PER SELF, UNMEASURED AMOUNT, PT ASKING FOR BABY WIPES TO CLEANSE PERINEUM WITH, PROVIDED WITH INSTRUCTIONS FOR PT NOT TO FLUSH THE BABY WIPES, PT AGREES. SHOWER OFFERED, AND ACCEPTED, SHOWER CHAIR PROVIDED, ALONG WITH CLEAN LINENS/GOWN/BABY SHAMPOO, TOOTHRBRUSH/PASTE, PT STATES SHE HAS DEODERANT. IV SL FOR SHOWER AND TAPED SECURELEY IN PLACE. BED LINENS CHANGED. SR UP X 2, CALL LIGHT AND PHONE WITHIN REACH.
--- NOTE | 2020-04-16 09:45 | NUR ---
PT BACK IN THE BED, IV RECONNECTED TO NS, FLUSHES WELL, SET TO INFUSE ON PUMP AT 100 ML/HR, AGAIN, SEE [facility] FOR ALL MEDS ADM BY THIS RN. PT DENIES ALL NEEDS. SRUP X2, CALL LIGHT AND PHONE WITHIN REACH. LIGHTS TURNED OUT AT PT'S REQUEST, WITH BR LIGHT ON AND DOOR LEFT CRACKED FOR SAFETY LIGHTING.
[2020-04-16] MEDS ORDERED: Vibramycin 100 MG/D5 IV (11:15)
[2020-04-16] MEDS ORDERED: FLAGYL 500500 MG/100 PO (11:16)
--- NOTE | 2020-04-16 11:45 | NUR ---
LUNCH TRAY SERVED BY DIETARY, PT ASKING FOR DR. LE TO DRINK, NONE ON UNIT, STATES SHE WILL DRINK A COCA COLA, SERVED. DENIES ALL OTHER NEEDS. SRUP X 2, CALL LIGHT AND PHONE WITHIN REACH. LIGHTS LEFT ON PER PT'S REQUEST.
--- NOTE | 2020-04-16 12:45 | NUR ---
DISCHARGE PLANNING BEGAN WITH PT. PT STATES "MY MOMMA IS ON HER WAY, AND SHOULD BE HERE IN A LITTLE BIT". IV TO RIGHT AC DC/D WITH CATH INTACT. PT KESHAV WELL, WITH PRESSURE HELD FOR APPROX 5 MIN. PT NOW DRESSING FOR DISCHARGE. AWAITING FOR HER "MOMMA" TO ARRIVE TO GO OVER D/C WITH PT. PT DENIES ALL NEEDS AT THIS TIME. SRUP X2, CALL LIGHT AND PHONE WITHIN REACH. PT WANTS LIGHTS LEFT ON AT THIS TIME.
--- NOTE | 2020-04-16 13:00 | NUR ---
PT'S "MOMMA" IN ROOM. DISCHARGE INSTRUCTIONS EXPLAINED TO PT AND MOMMA. PT GIVEN COPIES OF ALL D/C INSTRUCTIONS, ALONG WITH PRESCRIPTION GIVEN. PT DENIES ALL QUESTIONS. PT THEN OFF UNIT AMBULATORY, SHE REFUSES TO GO BY WHEELCHAIR, IN STABLE CONDITION, WITH HER "MOMMA".
== END 2020-04-16 13:00 | disposition home or self-care (01) | DRG 759 ==
LOC: D.ER 18:19 → D.EDHOLD 18:53 → D.WS 18:53 → D.LD 04-14 12:20
PROVIDERS: ADMIT Obstetrics & Gynecology; ATTEND Obstetrics & Gynecology
DX: N73.9 Female pelvic inflammatory disease, unspecified (principal); N70.93 Salpingitis and oophoritis, unspecified; N83.201 Unspecified ovarian cyst, right side; K21.9 Gastro-esophageal reflux disease without esophagitis; F41.8 Other specified anxiety disorders; F31.9 Bipolar disorder, unspecified; Z72.0 Tobacco use; E03.9 Hypothyroidism, unspecified

== ENCOUNTER 2020-09-14 07:28 | Day surgery (SDC) | payer MEDICARE, MEDICAID ==
[2020-09-11 16:49] LABS: BASOPHILS 0.4 % (0-2); EOSINOPHILS 3.7 % (0-7); HEMATOCRIT 34.2 % (36.0-48.0); HEMOGLOBIN 10.6 g/dL (12-16); IMMATURE GRANULOCYTES 0.1 % (0-5); LYMPHOCYTE ABS# 2.33 10x3/uL (1.18-3.74); LYMPHOCYTES 30.6 % (15-50); MCH 22.3 pg (26.0-34.0); MEAN PLATELET VOLUME 9.9 fL (7.4-10.4); MONOCYTES 6.2 % (2-11); PLATELET COUNT 255 10x3/uL (130-400); RBC 4.75 10x6/uL (4.00-5.40); RDW 16.5 % (11.5-14.5); WBC 7.6 10x3/uL (4.8-10.8)
[~2020-09-14] VITALS: Ht 170.2 cm; Wt 136.1 kg
[~2020-09-14 07:28] MED LIST changes: +FLAGYL 500500 MG/100 PO; +PROPRANOLOL HCL20 MG PO; +Vibramycin 100 MG/D5 IV; +[UNRECOGNIZED DRUG - OTHER] PO
[2020-09-14] MEDS ORDERED: MINIPRESS1 MG PO (07:48)
[2020-09-14 07:50] VITALS: BP 139/69; Ht 170.2 cm; Wt 136.1 kg
[2020-09-14 08:01] LABS: HCG URINE NEGATIVE (NEGATIVE)
--- NOTE | 2020-09-14 13:37 | NUR ---
JACIEL D/C'D PER VERBAL ORDER OF DR SEVERINO.
--- NOTE | 2020-09-25 11:04 | OP ---
PATIENT NAME: BOB ANTHONY MEDICAL RECORD: [id number] :96 LOCATION:D.OPS ADMISSION DATE: SURGEON: ANNIA QUIÑONES DO DATE OF OPERATION: 09/14/2020 PREOPERATIVE DIAGNOSES: 1. Suspected pyosalpinx, suspected ovarian cyst. 2. Pelvic pain, history of PID. POSTOPERATIVE DIAGNOSES: 1. Suspected pyosalpinx, suspected ovarian cyst. 2. Pelvic pain, history of PID. 3. Abdominal and pelvic adhesions. PRIMARY SURGEON: Annia Quiñoens MD ANESTHESIA: GETA. PROCEDURES: Diagnostic laparoscopy with lysis of adhesions. FINDINGS: Filmy adhesions surrounding left ovary causing it to be attached ro pelvic sidewalls, adhesion to uterus, some filmy adhesions on the right side from omentum to the ovary, otherwise grossly normal-appearing uterus, fallopian tubes, and ovaries. SPECIMENS: None. ESTIMATED BLOOD LOSS: Less than 200 cc. IV FLUIDS: 2100 mL of lactated Ringer. URINE OUTPUT: Clear yellow urine. COMPLICATIONS: None. DESCRIPTION OF PROCEDURE: The patient was counseled on the risks of surgery including bleeding, pain, infection, damage to surrounding structures, formation of scar tissue, possible loss of fallopian tube and ovary, which would lead to issues and diifculty with with fertility. The patient expressed understanding and signed consents in the office as well as preoperatively. The patient was taken to the OR where anesthesia was administered and found to be adequate. She was prepped and draped in normal sterile fashion and a HUMI was placed in the vagina. Attention was then turned to the abdomen. She was prepped and draped in the dorsal lithotomy position. Marcaine was injected into all port sites prior to trocar placement. Subumbilical incision made and a long 5-mm trocar was placed with direct entry technique. Pneumoperitoneum created with CO2 gas. Examination with laparoscopy revealed adhesions as described above, no trauma at site of entry. Trocars placed in LLQ & RLQ without issue. J hook was utilized due to thunderbeat equipment not working. Adhesions taken down to provide mobility and restore normal anatomy to the left and right ovary. Good hemostasis noted bilaterally. No gross abnormalities noted. All instruments removed. OPERATIVE REPORT [id number] BOB ANTHONY Skin was closed in subcuticular fashion with 3-0 Monocryl. All lap, needle, and sponge counts correct times two. The patient was awakened and taken to recovery room in stable condition. 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
== END 2020-09-14 14:45 | disposition home or self-care (01) ==
LOC: D.OPS 07:28
PROVIDERS: ATTEND Obstetrics & Gynecology
DX: R19.09 Other intra-abdominal and pelvic swelling, mass and lump (principal); Z86.19 Personal history of other infectious and parasitic diseases; F17.200 Nicotine dependence, unspecified, uncomplicated; J45.909 Unspecified asthma, uncomplicated; R10.2 Pelvic and perineal pain; N73.9 Female pelvic inflammatory disease, unspecified; N73.6 Female pelvic peritoneal adhesions (postinfective)